=== PATIENT | male | born 1980 | race Caucasian/White ===

== ENCOUNTER 2021-11-23 10:56 | Day surgery (SDC) | payer BC ==
[2021-11-23] MEDS ORDERED: BUPIVACAINE 0.5% VIAL IJ ONE (10:57)
[2021-11-23] MEDS ORDERED: Depo-Medrol 40 MG/ML IM ONE (10:57)
[2021-11-23] MEDS ORDERED: DIPRIVAN 200 MG/20 ML IV ONE (13:49)
[2021-11-23] MEDS ORDERED: Lactated Ringers 1,000 ML IV ONE (14:17)
--- NOTE | 2021-11-23 15:19 | XRAY ---
Indication: Right SI joint and right ischial tuberosity bursa injections. Intraoperative fluoroscopy provided for 21 seconds. 4 digital spot image submitted for interpretation demonstrates posterior needle tip projecting over the inferior right SI joint. Second needle tip inferior to right initial tuberosity with small amount of contrast injected for needle tip placement. Correlate with intraoperative findings/report.
--- NOTE | 2021-11-23 15:29 | XRAY ---
21 seconds fluoroscopy time in surgery for injections of the right SI joint and right ischial bursa.
== END 2021-11-23 14:15 | disposition home or self-care (01) ==
LOC: SDC-PAIN 10:56
PROVIDERS: ATTEND Psychiatry & Neurology Pain Medicine
DX: M54.16 Radiculopathy, lumbar region (principal); Z79.899 Other long term (current) drug therapy
CPT/HCPCS: 20610; 27096; 72202; 77002; J1030; J2704; Q9966; G0260

== ENCOUNTER 2022-12-27 13:08 | Day surgery (SDC) | payer BC ==
[2022-12-27] MEDS ORDERED: Decadron 4 MG INJ IV ONE (13:09)
[2022-12-27] MEDS ORDERED: LIDOCAINE HCL 2% 100 MG/5 ML IJ ONE (13:09)
[2022-12-27] MEDS ORDERED: DIPRIVAN 200 MG/20 ML IV ONE (15:08)
[2022-12-27] MEDS ORDERED: Lactated Ringers 1,000 ML IV ONE (16:18)
--- NOTE | 2022-12-27 16:39 | XRAY ---
Indication: Right C2-C4 MBB. Intraoperative fluoroscopy provided for 22 seconds. 2 digital spot image submitted for interpretation demonstrates posterior needle tips projecting over the right C2-C4 nerve roots. Correlate with intraoperative findings/report.
--- NOTE | 2022-12-27 16:43 | XRAY ---
22 seconds of fluoroscopy was used in surgery for a right C2-C4 MBB.
== END 2022-12-27 15:50 | disposition home or self-care (01) ==
LOC: SDC-PAIN 13:08
PROVIDERS: ATTEND Psychiatry & Neurology Pain Medicine
DX: M47.812 Spondylosis without myelopathy or radiculopathy, cervical region (principal); Z79.899 Other long term (current) drug therapy
CPT/HCPCS: 64490; 64491; 72040; 77002; J1100; J2704

== ENCOUNTER 2023-01-31 10:44 | Day surgery (SDC) | payer BC ==
[2023-01-31] MEDS ORDERED: Decadron 4 MG INJ IV ONE (10:45)
[2023-01-31] MEDS ORDERED: BUPIVACAINE 0.5% VIAL IJ ONE (10:45)
[2023-01-31] MEDS ORDERED: DIPRIVAN 200 MG/20 ML IV ONE (13:18)
--- NOTE | 2023-01-31 13:59 | XRAY ---
Indication: Right C2-C4 MBB. Intraoperative fluoroscopy provided for 12 seconds. Single digital spot image submitted for interpretation demonstrates posterior needle tips projecting over the expected right C2-C4 nerve roots. Correlate with intraoperative findings/report.
[2023-01-31] MEDS ORDERED: Lactated Ringers 1,000 ML IV ONE (15:22)
== END 2023-01-31 13:50 | disposition home or self-care (01) ==
LOC: SDC-PAIN 10:44
PROVIDERS: ATTEND Psychiatry & Neurology Pain Medicine
DX: M47.812 Spondylosis without myelopathy or radiculopathy, cervical region (principal); Z79.899 Other long term (current) drug therapy
CPT/HCPCS: 64490; 64491; 72040; 77002; J1100; J2704

== ENCOUNTER 2023-03-28 11:16 | Day surgery (SDC) | payer BC ==
[2023-03-28] MEDS ORDERED: Decadron 4 MG INJ IV ONE (11:17)
[2023-03-28] MEDS ORDERED: BUPIVACAINE 0.5% VIAL IJ ONE (11:17)
[2023-03-28] MEDS ORDERED: LIDOCAINE HCL 1% 50 MG/5 ML VL PF IJ ONE (11:17)
[2023-03-28] MEDS ORDERED: DIPRIVAN 200 MG/20 ML IV ONE ×2 (12:42→12:51)
--- NOTE | 2023-03-28 13:17 | XRAY ---
Indication: Right C2-C4 RFA. Intraoperative fluoroscopy provided for 22 seconds. 4 digital spot image submitted for interpretation demonstrates posterior needle tips projecting over the expected right C2-C4 nerve roots. Correlate with intraoperative findings/report.
--- NOTE | 2023-03-28 13:24 | XRAY ---
22 seconds of fluoroscopy was used in surgery for a right C2-C4 RFA.
[2023-03-28] MEDS ORDERED: Lactated Ringers 1,000 ML IV ONE (13:39)
== END 2023-03-28 13:18 | disposition home or self-care (01) ==
LOC: SDC-PAIN 11:16
PROVIDERS: ATTEND Psychiatry & Neurology Pain Medicine
DX: M47.812 Spondylosis without myelopathy or radiculopathy, cervical region (principal); Z79.899 Other long term (current) drug therapy
CPT/HCPCS: 64633; 64634; 72040; 77002; J1100; J2001; J2704